=== PATIENT | female | born 1960 | race Caucasian/White ===

== ENCOUNTER → 2021-05-17 | Outpatient (CLI) | payer BC ==
[2015-08-18 11:15] VITALS: BP 178/81
[~2021-05-17] MED LIST: IOHEXOL 180 MG/ML 10 ML VIAL. ONE; TRAM50TA PO; TRIA15CR2 TP; VITA1TAB19 PO; methylPREDNISolone ACETATE 80 MG/ML VIAL. ONE
--- NOTE | 2021-05-17 17:08 | PDOC1 ---
INITIAL PAIN CONSULT DATE OF SERVICE: DOS: DATE: 05/17/21 TIME: 17:00 CHIEF COMPLAINT: Chief Complaint: Low back and bilateral lower extremity pain HISTORY OF PRESENT ILLNESS: 60-year-old female presents with history of pain in the low back and bilateral lower extremities for about 5 years or so worse over the past year with any specific injury or accident that she is aware of but pain in the low back rating the bilateral lower extremities posterior gluteus posterior lateral thigh lateral anterior thigh especially on the left side greater than the right. She describes pain is constant shooting intermittent intensity but always present tingling with numbness in the left leg in the anterior thigh medial thigh also some cramping in the leg and foot aching and cold in the back worse in the end of the day worse at night which has been on her feet prolonged period more than about an hour patient reports that it wakes her from sleep at night about every 5-6 hours does not affect her bowel bladder control but does affect her ability to walk although she is not use any assistive devices to ambulate. Patient has been taking tramadol which does decrease the pain but only moderately patient reports she has had physical therapy in the past has been doing some stretching and strength exercises from this has had no formal therapy recently. Patient did have a MRI scan of the lumbar spine showing degenerative disc disease thr oughout with canal stenosis greatest at L3-4 with L4-5 disc bulge moderate facet hypertrophy canal stenosis moderate with lateral recess narrowing bilaterally and foraminal narrowing mild to moderate greater on the left L3-4 shows lateral recess narrowing bilaterally with canal stenosis moderate to severe at L5-S1 shows facet hypertrophy with a central annular fissure at the disc bulge lateral recess narrowing greater on the left as well with high-grade left and moderate right foraminal narrowing. Patient rates disability rating 0-10 10 being the worst is 7 with family responsibilities recreation social activity occupation 6 with sexual behavior self-care and 7 with life support activity. PAST MEDICAL HISTORY: PMH: Cigarette smoking, arthritis PREVIOUS SURGERIES: Past Surgical Hx: Sinus surgery CURRENT MEDICATIONS: Current Meds: Active Scripts Medications Dose Route/Sig Max Daily Dose Days Date Category Triamcinolone Acetonide 0.025% Cream (Triamcinolone Acetonide) 15 Gm Cream..g. 1 Everardo TP BID 05/17/21 Reported Tramadol Hcl 50 Mg Tablet 50 Mg PO BID PRN 05/17/21 Reported B Complex (Vitamin B Complex) 1 Each Tablet 1 Tab PO DAILY 30 05/17/21 Reported ALLERGIES; Allergies: Coded Allergies: No Known Drug Allergies (Unverified , 08/18/15) FAMILY HISTORY: Family Hx: No major medical problems or conditions which she is aware of. SOCIAL HISTORY: Social Hx: Patient does not take alcohol does smoke less than a pack a day and has since 1974 continues to smoke, does not use any illegal illicit or recreational drugs, is lives with her spouse lives locally in [facility]. REVIEW OF SYSTEMS: ROS: Positive for those items mentioned in history of present illness, all systems are reviewed, otherwise negative ,and are complete full and well-documented on patient's chart. PHYSICAL EXAM: VS: Blood pressure is 148/92 pulse 97 respirations 18 temperature is 99.2 F height is 5 foot 7 inches weight is 196 pounds. PE: PHYSICAL EXAMINATION: GENERAL: The patient is awake, alert, oriented, appropriate, very pleasant in demeanor HEENT: Shows normocephalic, atraumatic. Extraocular movements are intact and symmetrical. Oral cavity: Mucous membranes moist and pink. Dentition is intact. NECK: Shows anterior throat supple without palpable lymphadenopathy noted. Swallow reflex symmetrical. CHEST: Shows normal on inspection. Breath sounds are clear bilaterally, no rales rhonchi or wheezes auscultated. HEART: Shows S1, S2 clear. No murmurs auscultated. ABDOMEN: Soft, nontender, nondistended, obese. No palpable organomegaly is noted. BACK: Shows spine grossly in the midline. Normal-appearing cervical lordotic curvature. There is slightly increased thoracic kyphosis, some minor flattening of the lumbar lordotic curvature. Lumbar paraspinous muscles show symmetrical on inspection, on palpation shows some moderate tenderness diffusely throughout the upper, middle and lower distribution of the paraspinous muscles bilaterally and also into the lower thoracic paraspinous musculature, firm and tender, but without specific trigger points, without radiation of pain. The patient has good rotational motion of the lumbar spine, both laterally as well as extension and flexion without significant difficulty. No tenderness over the spinous processes, sacrum or sacroiliac regions. EXTREMITIES: Lower extremities show deep tendon reflexes 2+ in the patellar and tendo calcaneus tendons. Motor exam is 5 on a scale of 5 with right dorsiflexion, extension, quadriceps and hamstring flexion and 4/5 on the left. Peripheral pulses are 1+ posterior tibial. No peripheral edema is noted bilaterally. Lower extremities are warm and dry to touch, equal in color and appearance. Straight leg raise noted to be positive on the left at approximately 35 to 40 degrees decreased with knee flexion, right side is negative. Gaenslen's and Hernesto's maneuvers are negative bilaterally. The patient is able to stand, stand on her toes without significant difficulty loss of balance, walks with a slight shuffling gait does not appear to favor the right or left lower extremity significantly is not use any assistive devices to ambulate. SKIN: Shows warm and dry, good turgor. No edema. No sores, rashes or bruising throughout. IMPRESSION: Impression: 60-year-old female with approximate 1 year history increasing pain low back and left greater than right lower extremity and radicular fashion. MRI scan lumbar spine as noted History of arthritis Cigarette smoking Plan: Options were discussed with patient including conservative management physical therapies interventional techniques. Patient like to pursue dimensional techniques. We discussed a lumbar epidural steroid injections description as well as anatomical models to describe the procedure. Risks were discussed including but not limited to: Bleeding, infection, possibility of epidural hematoma and subsequent neurological compromise, dural puncture, headaches, spinal cord and/or nerve damage, side effects of steroid medication, and poor results regarding pain control. Patient understands and wished to proceed. Patient will return to the clinic in approximately 2 weeks for follow- up, was counseled as to return appointment activity level and side effects to be aware of. Procedure is lumbar epidural steroid injection under local anesthetic using sterile prep and drape at the L4-5 level using C-arm fluoroscopic guidance in both AP and lateral views medications injected is 120 mg Depo-Medrol +10mL preservative-free normal saline and 2 mL contrast- condition at discharge is stable patient tolerated procedure well had no complications. CAROL ANN BANDA MD May 17, 2021 17:08
--- NOTE | 2021-05-17 17:09 | PDOC4 ---
Procedure Note: ICD 10 Code: ICD 10 Code: M 54.16 M 48.06 M 51.36 Procedure Note: Patient was consented for lumbar epidural steroid injection with fluoroscopic guidance. Risks were discussed including but not limited to: Bleeding, infection, possibility of epidural hematoma and subsequent neurological compromise, dural puncture, headaches, spinal cord and/or nerve damage, side effects of steroid medication, and poor results regarding pain control. Patient understands and wished to proceed. Procedure is lumbar epidural steroid injection under local anesthetic using s terile prep and drape at the L4-5 level using C-arm fluoroscopic guidance in both AP and lateral views medications injected is 120 mg Depo-Medrol +10mL preservative-free normal saline and 2 mL contrast- condition at discharge is stable patient tolerated procedure well had no complications. CAROL ANN BANDA MD May 17, 2021 17:09
== END ==
LOC: PNCL 12:57
PROVIDERS: ATTEND Anesthesiology
DX: M51.36 Other intervertebral disc degeneration, lumbar region (principal); M48.061 Spinal stenosis, lumbar region without neurogenic claudication
CPT/HCPCS: 62323; 99205; J1040; Q9965; G0463

== ENCOUNTER → 2021-06-21 | Outpatient (CLI) | payer BC ==
[2015-08-18 11:15] VITALS: BP 178/81
--- NOTE | 2021-06-21 12:16 | PDOC ---
Progress Note - Pain Clinic Date of Service: DOS: DATE: 06/21/21 TIME: 12:13 Diagnosis: Dx: Lumbar radiculopathy with lumbar degenerative disease and lumbar spinal stenosis History or Present Illness: HPI: 60-year-old female returns for follow-up status post lumbar epidural steroid traction x1. Patient reports about 30% improvement overall pain in her low back and left lower extremity the pain returning and increasing and with right and left lower extremity pain at this time which is new for her also some cramping which is new patient reports is aching tight shooting cramping on and off in intensity low back and mostly on the left side but now on the right side as well posterior gluteus posterior lateral thigh lateral anterior thigh anterior medial thigh medial lower leg and occasionally in the calf on the right side patient reports a 7 on scale 10 is worst least and average is a 7 today patient reports initially he is doing better with distance walking doing household activities and travel with greater ease but only for about a week or so patient reports the pain returned fairly significantly and again is now on the right side as well. Patient reports no bowel or bladder incontinence. Physical Exam: VS: Blood pressure is 140/90 pulse 55 respirations are 16 temperature is 98.1 F weight is 194 pounds PE: PHYSICAL EXAMINATION: GENERAL: The patient is awake, alert, oriented, appropriate, very pleasant in [facility], patient [place] by her . HEENT: Shows normocephalic, atraumatic. Extraocular movements are intact and symmetrical. Oral cavity: Mucous membranes moist and pink. NECK: Shows anterior throat supple without palpable lymphadenopathy noted. Swallow reflex symmetrical. CHEST: Shows normal on inspection. Breath sounds are clear bilaterally, distant but no rales or rhonchi. HEART: Shows S1, S2 clear. No murmurs auscultated. ABDOMEN: Soft, nontender, nondistended, obese. No palpable organomegaly is noted. BACK: Shows spine grossly in the midline. Normal-appearing cervical lordotic curvature. There is increased thoracic kyphosis, some flattening of the lumbar lordotic curvature. Lumbar paraspinous muscles show symmetrical on inspection, on palpation shows some moderate tenderness diffusely throughout the upper, middle and lower distribution of the paraspinous muscles, but without specific trigger points, without radiation of pain. The patient has good rotational motion of the lumbar spine, both laterally as well as extension and flexion without significant difficulty. EXTREMITIES: Lower extremities show deep tendon reflexes 2+ in the patellar and tendo calcaneus tendons. Motor exam is 5 on a scale of 5 with right dorsiflexion, extension, quadriceps and hamstring flexion and 4/5 on the left. Peripheral pulses are 1 posterior tibial. No peripheral edema is noted bilaterally. Lower extremities are warm and dry to touch, equal in color and appearance. SKIN: Shows warm and dry, good turgor. No edema. No sores, rashes or bruising throughout. Procedure: Procedure: Options discussed with the patient. Patient's old chart was reviewed as her current medication regimen updated current review of systems updated today as well. We will proceed with a lumbar epidural steroid injection today with fluoroscopic guidance. Risks were discussed including but not limited to: Bleeding, infection, possibility of epidural hematoma and subsequent neurological compromise, dural puncture, headaches, spinal cord and/or nerve damage, side effects of steroid medication, and poor results regarding pain control. Patient understands and wished to proceed. Patient return to clinic in approximate 2 weeks for follow-up, was counseled as return appointment, activity level, and side effects be aware of. We will also order new physical therapy with traction and stretching strength exercises as well as mobility exercises and postural retraining. Medication Injected: Med Injected: Procedure is lumbar epidural steroid injection under local anesthetic using sterile prep and drape at the L4-5 level using C-arm fluoroscopic guidance in both AP and lateral views medications injected is 120 mg Depo-Medrol +10mL preservative-free normal saline and 2 mL contrast- condition at discharge is stable patient tolerated procedure well had no complications. Condition at Discharge: Condition at Discharge: Condition at discharge stable, patient tolerated procedure well and had no complications. CAROL ANN BANDA MD Jun 21, 2021 12:16
--- NOTE | 2021-06-21 12:17 | PDOC4 ---
Procedure Note: ICD 10 Code: ICD 10 Code: M54.16 M51.36 M4 8.06 Procedure Note: Patient was consented for lumbar epidural steroid injection with fluoroscopic guidance. Risks were discussed including but not limited to: Bleeding, infection, possibility of epidural hematoma and subsequent neurological compromise, dural puncture, headaches, spinal cord and/or nerve damage, side effects of steroid medication, and poor results regarding pain control. Patient understands and wished to proceed. Procedure is lumbar epidural steroid injection under local anesthetic using placido rile prep and drape at the L4-5 level using C-arm fluoroscopic guidance in both AP and lateral views medications injected is 120 mg Depo-Medrol +10mL preservative-free normal saline and 2 mL contrast- condition at discharge is stable patient tolerated procedure well had no complications. CAROL ANN BANDA MD Jun 21, 2021 12:17
== END | disposition home or self-care (01) ==
LOC: PNCL 11:02
PROVIDERS: ATTEND Anesthesiology
DX: M51.16 Intervertebral disc disorders with radiculopathy, lumbar region (principal); M48.061 Spinal stenosis, lumbar region without neurogenic claudication; F17.210 Nicotine dependence, cigarettes, uncomplicated; Z79.899 Other long term (current) drug therapy
CPT/HCPCS: 62323; J1040; Q9965

== ENCOUNTER → 2021-07-23 | Outpatient (CLI) | payer BC ==
[2015-08-18 11:15] VITALS: BP 178/81
[~2021-07-23] MED LIST changes: +methylPREDNISolone ACETATE 40 MG/ML VIAL. ONE
--- NOTE | 2021-07-23 15:52 | PDOC ---
Progress Note - Pain Clinic Date of Service: DOS: DATE: 07/23/21 TIME: 15:48 Diagnosis: Dx: Lumbar radiculopathy with lumbar degenerative disease lumbar spinal stenosis History or Present Illness: HPI: 60-year-old female returns for follow-up status post lumbar epidural steroid injection x2. Patient reports about 50% improvement after the first week or so but the pain returned fairly significantly in the low back and into the left greater than right lower extremities well some left knee pain patient reports is worse with walking standing changing positions rate is a 9 on scale 10 is worse over the past week 7 on average 5 its patient reports is a 5 today. Patient reports pain in the low back and the bilateral lower extremities worse on the left than the right posterior gluteus posterior lateral thigh lateral anterior thigh anteromedial thigh medial lower leg describes tingling cramping shooting tight and aching on and off in intensity patient reports is worse with standing for prolonged periods walking changing positions better with sitting or laying down but is waking her from sleep about every 2-3 hours at a time especially if she lays on her left side. Patient also reports he has some cramps in the low back and legs as well as her hands and fingers. Patient reports no bowel or bladder incontinence. Physical Exam: VS: Blood pressure is 147/93 pulse 69 respirations 20 temperature is 98.2 F weight is 198 pounds PE: PHYSICAL EXAMINATION: GENERAL: The patient is awake, alert, oriented, appropriate, very pleasant in demeanor HEENT: Shows normocephalic, atraumatic. Extraocular movements are intact and symmetrical. Oral cavity: Mucous membranes moist and pink. Dentition is intact. NECK: Shows anterior throat supple without palpable lymphadenopathy noted. Swallow reflex symmetrical. CHEST: Shows normal on inspection. Breath sounds are clear bilaterally, distant but no rales or rhonchi. HEART: Shows S1, S2 clear. No murmurs auscultated. ABDOMEN: Soft, nontender, nondistended, obese. No palpable organomegaly is noted. BACK: Shows spine grossly in the midline. Normal-appearing cervical lordotic curvature. There is increased thoracic kyphosis, some flattening of the lumbar lordotic curvature. Lumbar paraspinous muscles show symmetrical on inspection, on palpation shows some moderate tenderness diffusely throughout the upper, middle and lower distribution of the paraspinous muscles without specific trigger points, without radiation of pain. The patient has good rotational motion of the lumbar spine, both laterally as well as extension and flexion without significant difficulty. EXTREMITIES: Lower extremities show deep tendon reflexes 2+ in the patellar and tendo calcaneus tendons. Motor exam is 5 on a scale of 5 with right dorsiflexion, extension, quadriceps and hamstring flexion and 4/5 on the left. Peripheral pulses are 1+ posterior tibial. No peripheral edema is noted bilaterally. Lower extremities are warm and dry. SKIN: Shows warm and dry, good turgor. No edema. No sores, rashes or bruising throughout. Procedure: Procedure: Options were discussed with the patient. Patient's old chart reviews her current medication regimen updated current review of systems updated today as well. We will proceed with a lumbar epidural steroid injection today with fluoroscopic guidance. Risks were discussed including but not limited to: Bleeding, infection, possibility of epidural hematoma and subsequent neurological compromise, dural puncture, headaches, spinal cord and/or nerve damage, side effects of steroid medication, and poor results regarding pain control. Patient understands and wished to proceed. Patient will return to the clinic in approximately 2 weeks for follow-up, was counseled return appointment, activity level, and side effect to be aware of. Medication Injected: Med Injected: Procedure is lumbar epidural steroid injection under local anesthetic using sterile prep and drape at the L4-5 level using C-arm fluoroscopic guidance in both AP and lateral views medications injected is 120 mg Depo-Medrol +10mL preservative-free normal saline and 2 mL contrast- condition at discharge is stable patient tolerated procedure well had no complications. Condition at Discharge: Condition at Discharge: Condition at discharge stable, patient tolerated the procedure well and had no complications. CAROL ANN BANDA MD Jul 23, 2021 15:52
--- NOTE | 2021-07-23 15:53 | PDOC4 ---
Procedure Note: ICD 10 Code: ICD 10 Code: M54.16 M51.36 M4 8.06 Procedure Note: Patient was consented for lumbar epidural steroid injection with fluoroscopic guidance. Risks were discussed including but not limited to: Bleeding, infection, possibility of epidural hematoma and subsequent neurological compromise, dural puncture, headaches, spinal cord and/or nerve damage, side effects of steroid medication, and poor results regarding pain control. Patient understands and wished to proceed. Procedure is lumbar epidural steroid injection under local anesthetic using placido rile prep and drape at the L4-5 level using C-arm fluoroscopic guidance in both AP and lateral views medications injected is 120 mg Depo-Medrol +10mL preservative-free normal saline and 2 mL contrast- condition at discharge is stable patient tolerated procedure well had no complications. CAROL ANN BANDA MD Jul 23, 2021 15:53
== END | disposition home or self-care (01) ==
LOC: PNCL 14:51
PROVIDERS: ATTEND Anesthesiology
DX: M51.16 Intervertebral disc disorders with radiculopathy, lumbar region (principal); M48.061 Spinal stenosis, lumbar region without neurogenic claudication; F17.210 Nicotine dependence, cigarettes, uncomplicated; Z79.899 Other long term (current) drug therapy
CPT/HCPCS: 62323; J1030; J1040; Q9965